=== PATIENT | female | born 1990 | race African-American/Black ===

== ENCOUNTER 2022-01-09 07:53 | Emergency (ER) | payer SELFPAY ==
[2022-01-09] MEDS ORDERED: Ondansetron ODT 4 MG TAB ONE (08:36)
[2022-01-09 08:53] LABS: Bilirubin Neg (Negative); Blood, Urine 150 (Negative); Clarity Clear (Clear); Glucose, Urine (Dipstick) Normal (Negative); Ketone, Urine Negative (Negative); Leukocyte 25 (Negative); Nitrite Negative (Negative); Protein, Urine (Dipstick) Negative (Neg-Trace); Urobilinogen Normal mg/dL (Less than 2)
[2022-01-09 09:03] LABS: Pregnancy Test - Urine (BHCG) Negative (Negative); Pregu Control Background? CLEAR/WHITE (CLR/WHITE); Pregu Control Bar Appear? YES (CONTROL BAR)
[2022-01-09 09:12] LABS: Bacteria/HPF 1+ HPF (None Seen); RBC/HPF 0-3 HPF (0-3)
== END 2022-01-09 08:58 | disposition home or self-care (01) ==
LOC: CSHERS 07:53
DX: R11.2 Nausea with vomiting, unspecified (principal); T85.9XXA Unspecified complication of internal prosthetic device, implant and graft, initial encounter
CPT/HCPCS: 81003; 81015; 81025; 99284; Q0162

== ENCOUNTER 2022-07-30 10:07 | Emergency (ER) | payer SELFPAY ==
[2022-07-30 10:57] LABS: #Monocytes 0.9 10x3/uL (0.0-1.1); #Neutrophils 5.8 10x3/uL (1.5-8.4); %Basophils 0.2 % (0.0-2.0); %Eosinophils 0.4 % (0.0-6.0); %Lymphocytes 32.6 % (18.0-47.0); %Monocytes 8.6 % (0.0-10.0); %Neutrophils 57.9 % (40.0-75.0); Hemoglobin 14.2 g/dL (12.0-15.5); Mean Corpuscular HGB CONC 35.5 g/dL (32.0-36.0); Mean Corpuscular Hemoglobin 29.9 pg (27.0-33.0); Mean Corpuscular Volume 84.2 fl (81.6-98.3); Mean Platelet Volume 9.2 fl (7.4-10.4); Platelet Count 342 10x3/uL (150-450); Red Blood Cell (RBC) Count 4.75 10x6/uL (3.90-5.03)
[2022-07-30] MEDS ORDERED: Promethazine HCl 25 MG/ML VIAL ONE (11:17)
[2022-07-30 11:24] LABS: ALT (SGPT) 20 U/L (8-55); AST (SGOT) 20 U/L (5-34); Albumin 4.7 g/dL (3.5-5.0); Alkaline Phosphatase 60 U/L (40-110); Anion Gap 14 mmol/L (10-20); BUN (Urea Nitrogen) 5 mg/dL (7.0-18.7); Bilirubin, Total 0.6 mg/dL (0.2-1.2); Calc. Creatinine Clearance 0 mL/min (70-130); Calcium 9.7 mg/dL (7.8-10.44); Carbon Dioxide 19 mmol/L (22-29); Chloride 106 mmol/L (98-107); Estimated GFR 119; Globulin 3.1 g/dL (2.4-3.5); Glucose 86 mg/dL (70-105); Lipase 22 U/L (8-78); Potassium 3.4 mmol/L (3.5-5.1); Protein, Total 7.8 g/dL (6.0-8.3); Sodium 136 mmol/L (136-145)
[2022-07-30 12:39] LABS: Bilirubin Neg (Negative); Blood, Urine Negative (Negative); Clarity Clear (Clear); Glucose, Urine (Dipstick) >=1000 mg/dL (Negative); Ketone, Urine 50 mg/dL (Negative); Leukocyte Negative (Negative); Nitrite Negative (Negative); Protein, Urine (Dipstick) Negative (Neg-Trace); Specific Gravity, Urine 1.005 (1.005-1.030); Urobilinogen Normal mg/dL (Less than 2); pH, Urine 6.5 (5.0-9.0)
== END 2022-07-30 13:09 | disposition home or self-care (01) ==
LOC: CSHERS 10:07
DX: O21.0 Mild hyperemesis gravidarum (principal); O99.280 Endocrine, nutritional and metabolic diseases complicating pregnancy, unspecified trimester; E87.6 Hypokalemia; Z3A.08 8 weeks gestation of pregnancy
CPT/HCPCS: 36415; 80053; 81003; 83605; 83690; 84702; 85025; 96361; 96365; J2550

== ENCOUNTER 2023-06-05 09:38 | Emergency (ER) | payer OTHER ==
[~2023-06-05 09:38] MED LIST: Iopamidol 300 61% 100 ML VIAL FS ONE
[2023-06-05] MEDS ORDERED: Ondansetron PF 4 MG/2 ML Vial ONE ×2 (10:32→15:36)
[2023-06-05] MEDS ORDERED: Morphine 4 MG/ML VIAL ONE (10:32)
[2023-06-05] MEDS ORDERED: Ketorolac Tromethamine 30 MG/ML VIAL ONE (10:33)
[2023-06-05 10:52] LABS: #Monocytes 1.1 10x3/uL (0.0-1.1); #Neutrophils 13.6 10x3/uL (1.5-8.4); %Basophils 0.2 % (0.0-2.0); %Eosinophils 0.2 % (0.0-6.0); %Lymphocytes 12.2 % (18.0-47.0); %Monocytes 6.5 % (0.0-10.0); %Neutrophils 80.7 % (40.0-75.0); Hematocrit 45.5 % (34.9-44.5); Hemoglobin 15.8 g/dL (12.0-15.5); Mean Corpuscular HGB CONC 34.7 g/dL (32.0-36.0); Mean Corpuscular Hemoglobin 29.6 pg (27.0-33.0); Mean Corpuscular Volume 85.2 fl (81.6-98.3); Mean Platelet Volume 9.8 fl (7.4-10.4); Platelet Count 320 10x3/uL (150-450); RBC Distribution Width 12.9 % (11.5-14.5); Red Blood Cell (RBC) Count 5.34 10x6/uL (3.90-5.03); White Blood Cell (WBC) Count 16.8 10x3/uL (3.5-10.5)
[2023-06-05 11:01] LABS: ALT (SGPT) 13 U/L (8-55); AST (SGOT) 21 U/L (5-34); Alkaline Phosphatase 114 U/L (40-110); Anion Gap 18 mmol/L (10-20); BUN (Urea Nitrogen) 9 mg/dL (7.0-18.7); Bilirubin, Total 0.7 mg/dL (0.2-1.2); Calc. Creatinine Clearance 0 mL/min (70-130); Calcium 9.9 mg/dL (7.8-10.44); Carbon Dioxide 17 mmol/L (22-29); Chloride 105 mmol/L (98-107); Estimated GFR 98; Globulin 3.4 g/dL (2.4-3.5); Glucose 95 mg/dL (70-105); Lipase 24 U/L (8-78); Potassium 3.8 mmol/L (3.5-5.1); Protein, Total 8.4 g/dL (6.0-8.3); Sodium 136 mmol/L (136-145)
[2023-06-05 13:23] LABS: BHCG - Serum Negative (NEGATIVE); Pregs Control Background? CLEAR/WHITE (CLR/WHITE); Pregs Control Bar Appear? YES (CONTROL BAR)
[2023-06-05] MEDS ORDERED: Bupivacaine PF 0.5% 30 ML VIAL ONE (14:58)
[2023-06-05] MEDS ORDERED: EPINEPHrine 1 MG/ML VIAL ONE (14:58)
[2023-06-05] MEDS ORDERED: Piperacillin/Tazobactam 3.375 GM VIAL ONE (15:07)
[2023-06-05] MEDS ORDERED: PROPOFOL 20 ML ONE (15:36)
[2023-06-05] MEDS ORDERED: Rocuronium Bromide 10 MG/ML (10ML VIAL) ONE (15:36)
[2023-06-05] MEDS ORDERED: Lidocaine 1% PF 5 ML VIAL ONE (15:36)
[2023-06-05] MEDS ORDERED: Dexamethasone 4 mg/ml Vial ONE (15:36)
[2023-06-05] MEDS ORDERED: Midazolam HCl 2 mg/2 ml Vial ONE (15:36)
[2023-06-05] MEDS ORDERED: fentaNYL 50 mcg/mL 1 mL Vial ONE (15:36)
[2023-06-05] MEDS ORDERED: Succinylcholine 200 MG/10 ml SYRINGE FS ONE (15:53)
[2023-06-05] MEDS ORDERED: SUGAMMADEX SODIUM 200 MG/2 ML VIAL ONE (16:24)
[2023-06-05] MEDS ORDERED: HYDROcodone/Acetaminophen 5/325 mg Tablet PO PRN (16:31)
[2023-06-05] MEDS ORDERED: Ondansetron ODT 4 MG TAB PO PRN (16:37)
[2023-06-05] MEDS ORDERED: HYDROcodone/Acetaminophen 5/325 mg Tablet ONE (17:22)
== END 2023-06-05 15:57 | disposition admitted as inpatient to this hospital (09) ==
LOC: CSHERS 09:38
PROC: 0DTJ4ZZ Resection of Appendix, Percutaneous Endoscopic Approach (ICD-10-PCS; principal; 2023-06-05)
DX: K35.80 Unspecified acute appendicitis (principal); Z79.82 Long term (current) use of aspirin
CPT/HCPCS: 74177; 80053; 83690; 84703; 85025; 88304; 96374; 96375; A4649; C1776; J0171; J1100; J1885; J2250; J2270; J2405; J2543; J2704; J3010; Q9967; S0020